=== PATIENT | male | born 1965 | race Two or more races ===

== ENCOUNTER → 2024-10-16 | Outpatient (CLI) | payer MEDICAID, SELFPAY | END | disposition home or self-care (01) | LOC: SWHD 13:33 | PROVIDERS: PCP Physician Assistant; Referring Provider Physician Assistant; Visit Provider Student in an Organized Health Care Education/Training Program | DX: I87.311 Chronic venous hypertension (idiopathic) with ulcer of right lower extremity (principal); L97.512 Non-pressure chronic ulcer of other part of right foot with fat layer exposed; L81.9 Disorder of pigmentation, unspecified; R60.0 Localized edema; I96 Gangrene, not elsewhere classified; L85.3 Xerosis cutis; I10 Essential (primary) hypertension | CPT/HCPCS: 11043; 11046 ×2; A9270 ==

== ENCOUNTER → 2024-10-17 | Outpatient (CLI) | payer MEDICAID, SELFPAY ==
[2024-10-15 14:13] LABS: Blood Urea Nitrogen 20 mg/dL (9-23); Creatinine (Component) 1.2 mg/dL (0.6-1.3); eGFR > 60 See Note
--- NOTE | 2024-10-17 11:00 | XR_ITS ---
Examination: CTA abdominal aorta iliofemoral runoff. 2-D sagittal coronal reconstructions. 3-D reconstructions, vascular October 17, 2024 1140 hours INDICATIONS: Nonhealing ulcer and infection right leg 1 year Technique: Multiple CTA images of the abdominal aorta iliofemoral runoff arterial vessels, 2.0 mm slice thickness, post intravenous administration 130 cc [id number] 2-D sagittal coronal reconstructions. 3-D reconstructions, vascular 3-D postprocessing, including vascular maximum intensity projection images, 3-D volume rendering Low dose protocols were performed. One or more of the following dose reduction techniques were used; automated exposure control, adjustment of the mA and/or KV according to patient size, use of iterative reconstruction technique. Findings: Mild enlargement cardiac contour No visualized liver or splenic lesion No gallstones No pancreatic mass No renal calculi No bowel obstruction No diverticulitis Urinary bladder wall is thickened up to 5 mm Abundant stool in the rectum Fat-containing right inguinal hernia No abdominal aortic aneurysm dilatation Origin of the celiac axis is significantly attenuated Common iliac and external iliac common femoral arteries are intact No superficial femoral artery or popliteal artery significant stenoses Trifurcation arterial vessels on the right side fill to the ankle including dorsalis pedis There is poor filling of the distal left anterior tibial artery, clinical correlation advised IMPRESSION: Urinary bladder wall is thickened up to 5 mm, clinical correlation advised Fat-containing right inguinal hernia Origin of the celiac axis is significantly attenuated Superficial femoral-popliteal arteries intact Trifurcation arterial vessels on the right side fill to the ankle including dorsalis pedis There is poor filling of the distal half left anterior tibial artery.
== END | disposition home or self-care (01) ==
LOC: CCTX 09:55
PROVIDERS: PCP Family Medicine; Referring Provider Surgery Vascular Surgery; Visit Provider Surgery Vascular Surgery
DX: K40.90 Unilateral inguinal hernia, without obstruction or gangrene, not specified as recurrent (principal); I77.89 Other specified disorders of arteries and arterioles
CPT/HCPCS: 36415; 75635; 82565; 84520; A4649; Q9967

== ENCOUNTER → 2024-10-23 | Outpatient (CLI) | payer MEDICAID, SELFPAY | END | disposition home or self-care (01) | PROVIDERS: PCP Physician Assistant; Referring Provider Physician Assistant; Visit Provider Student in an Organized Health Care Education/Training Program | DX: L97.512 Non-pressure chronic ulcer of other part of right foot with fat layer exposed (principal); L81.9 Disorder of pigmentation, unspecified; R60.0 Localized edema; L85.3 Xerosis cutis; I10 Essential (primary) hypertension | CPT/HCPCS: 11042; 11045 ×2; A9270 ==

== ENCOUNTER → 2024-11-04 | Outpatient (CLI) | payer MEDICAID, SELFPAY | END | disposition home or self-care (01) | LOC: SWHD 14:38 | PROVIDERS: PCP Physician Assistant; Referring Provider Physician Assistant; Visit Provider Surgery | DX: I96 Gangrene, not elsewhere classified (principal); I87.311 Chronic venous hypertension (idiopathic) with ulcer of right lower extremity; L97.512 Non-pressure chronic ulcer of other part of right foot with fat layer exposed; L81.9 Disorder of pigmentation, unspecified; R60.0 Localized edema; L85.3 Xerosis cutis; I10 Essential (primary) hypertension | CPT/HCPCS: 11042; A9270 ==

== ENCOUNTER 2024-11-29 10:48 | Emergency (ER) | payer MEDICAID, SELFPAY ==
--- NOTE | 2024-11-29 11:07 | EDNOTE_ITS ---
<Statement entered by Katlyn Montes MD - 12/06/24 12:02> As co-signing physician, I was present and available for consult prn. I concur with the plan and care as documented by the midlevel provider. Upper Extremity Injury RME/HPI General Chief Complaint: Extremity Injury, Upper Stated Complaint: SWELLING TO MIDDLE FINGER ON LEFT HAND Time Seen by Provider: 11/29/24 11:06 Source: patient Arrival date/time: 11/29/24 10:48 59-year-old male with a history of hypertension, type 2 diabetes, hyperlipidemia presents to the emergency room with a chief complaint of swelling and tenderness to the middle finger on his left hand. 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 Mode of arrival: ambulatory Limitations: no limitations Related Data Previous Rx's ?Medication ?Instructions ?Recorded ascorbic acid (vitamin C) 250 mg 500 mg (2 x 250 mg) PO BID #60 tabs 12/26/23 tablet (Vitamin C) multivitamin with folic acid 400 1 tab PO QDAY #30 tabs 12/26/23 mcg tablet (Tab-A-Ita) bisacodyl 10 mg rectal suppository 10 mg NM Q72H PRN Constipation #12 12/29/23 (Dulcolax (bisacodyl)) ea blood-glucose meter (Blood Glucose #1 ea 12/29/23 Monitoring kit) dronabinol 5 mg capsule 5 mg PO BID #30 caps 12/29/23 glucagon HCl 1 mg solution for 1 mg subcut Q20M PRN Hypoglycemia 12/29/23 injection (Glucagon (HCl) #1 ea Emergency Kit) hydrocodone 7.5 mg-acetaminophen 1 tab PO Q8H PRN Pain (Scale Score 12/29/23 325 mg tablet 7-10) #10 tabs insulin lispro 100 unit/mL 1 sliding scale dose subcut 12/29/23 subcutaneous pen (Admelog SolGallo USEASDIRECTD #15 mL U-100 Insulin lispro) metformin 1,000 mg tablet 1,000 mg PO BIDWMEAL #90 tabs 12/29/23 ondansetron HCl 4 mg tablet 4 mg PO Q6H PRN Nausea #30 tabs 12/29/23 pantoprazole 40 mg tablet,delayed 40 mg PO QDAY #60 tabs 12/29/23 release pen needle, diabetic 31 gauge x #1,200 ea 12/29/23 5/16 sitagliptin phosphate 50 mg tablet 50 mg PO QDAY 1 month #30 tabs 12/29/23 (Januvia) insulin glargine 100 unit/mL (3 10 unit (0.1 mL) subcut QPM #15 mL 03/01/24 mL) subcutaneous pen (Basaglar KwikPen U-100 Insulin) midodrine 10 mg tablet 10 mg PO TID PRN hypotension #90 03/04/24 tabs clindamycin HCl 150 mg capsule 450 mg (3 x 150 mg) PO TID 7 days 11/29/24 #63 caps Allergies Allergy/AdvReac Type Severity Reaction Status Date / Time milk AdvReac Mild Diarrhea Verified 12/26/23 09:28 Review of Systems Review of Systems Systems Reviewed: All systems reviewed, normal except as documented Constitutional Constitutional: Reports system reviewed and no additional complaints, except as documented, Denies fatigue, Denies fever(s), Denies headache(s) and Denies weakness Eyes Eyes: Reports system reviewed and no additional complaints, except as documented, Denies blurry vision and Denies change in vision ENT Ears, Nose, Mouth, and Throat: Reports system reviewed and no additional complaints, except as documented, Denies otalgia, Denies headache(s), Denies nasal congestion, Denies throat swelling and Denies vertigo Cardiovascular Cardiovascular: Reports system reviewed and no additional complaints, except as documented, Denies chest pain, Denies dyspnea and Denies dyspnea on exertion Respiratory Respiratory: Reports system reviewed and no additional complaints, except as documented, Denies chest congestion, Denies cough, Denies dyspnea, Denies dyspnea on exertion and Denies wheezing Gastrointestinal Gastrointestinal: Reports system reviewed and no additional complaints, except as documented, Denies abdominal pain, Denies cramping, Denies nausea and Denies vomiting Genitourinary Genitourinary: Reports system reviewed and no additional complaints, except as documented, Denies dysuria and Denies hematuria Musculoskeletal Musculoskeletal: Reports system reviewed and no additional complaints, except as documented, Reports arthralgias and Denies back pain Integumentary/Breasts Skin/Breast: Reports system reviewed and no additional complaints, except as documented, Reports pruritus, Reports skin swelling, Reports unusual bruising and Reports wounds Neurologic Neurologic: Reports system reviewed and no additional complaints, except as documented, Denies confusion, Denies headache(s), Denies lack of coordination, Denies vertigo and Denies weakness Psychiatric Psychiatric: Reports system reviewed and no additional complaints, except as documented, Denies anxiety, Denies confusion, Denies depression, Denies paranoia, Denies suicidal ideation and Denies tactile hallucinations Endocrine Endocrine: Reports system reviewed and no additional complaints, except as documented and Denies fatigue Hematologic/Lymphatic Hematologic/Lymphatic: Reports system reviewed and no additional complaints, except as documented and Denies lymphadenopathy Allergic/Immunologic Allergic/Immunologic: Reports system reviewed and no additional complaints, except as documented, Denies throat swelling, Denies urticaria and Denies wheezing Past Medical History Past Medical History NEUROLOGIC: Negative Neurological Disorders or Seizures CARDIAC: Negative Cardiac Disorders or Congestive Heart Failure RESPIRATORY: Negative Chronic Obstructive Pulmonary Disease (COPD) or Asthma GASTROINTESTINAL: Positive Gastroesophageal Reflux Disease; Negative Gastrointestinal Disorders GENITOURINARY: Negative Genitourinary Disorders or Renal Disease MUSCULOSKELETAL: Negative Musculoskeletal Disorders ENT: Positive Cataracts ENDOCRINE: Positive Endocrine Disorders and Diabetes Mellitus Type 2; Negative Diabetes Mellitus Type 1 HEMATOLOGIC: Negative Blood Disorders or Sickle Cell Disease OTHER HISTORY: Negative Autoimmune Disease, Blood Transfusions, Blood Transfusion Reaction, Anesthesia Reactions or Cancer Family History FAMILY HISTORY: Negative Family Psychiatric Problems, Family Respiratory Disorders, Family Cardiac Disorders, Family Gastrointestinal Problems, Family Cancer, Family Surgery or Family Anesthesia Reaction Social History SMOKING STATUS: Never smoker SECOND HAND EXPOSURE: No SUBSTANCE USE: does not use ED Exam General Limitations: Present no limitations General appearance: Present alert and in no apparent distress Head Head exam: Present atraumatic Eye Eye exam: Present normal appearance, PERRL and EOMI ENT ENT exam: Present normal exam, normal oropharynx and mucous membranes moist Neck Neck exam: Present normal inspection, full ROM and trachea midline Chest Chest inspection: Present normal inspection and symmetric chest wall rise Respiratory Respiratory exam: Present normal lung sounds bilaterally Cardiovascular Cardiovascular exam: Present regular rate, normal rhythm and normal heart sounds Abdominal Exam Abdominal exam: Present soft and normal bowel sounds Extremities Exam Extremities exam: Present normal inspection and full ROM Expanded Upper Extremity Exam Shoulder exam: Present normal inspection Arm exam: Present normal inspection Elbow exam: Present normal inspection Forearm/Wrist exam: Present normal inspection Hand exam: Present full ROM, tenderness, swelling, abrasion and erythema Hand L/R front image: 2 1. abrasion Back Exam Back exam: Present normal inspection and full ROM Neurological Exam Neurological exam: Present alert, oriented X3 and CN II-XII intact Psychiatric Psychiatric exam: Present normal affect and normal mood Skin Skin exam: Present warm, dry, intact and normal color Course Quality Measures none Orders Category Date Time Status XR hand comp LT min 3V Stat Exams 11/29/24 11:08 Completed Clindamycin Vial [Cleocin vial] Med 11/29/24 12:23 Discontinued 600 mg IM X1 ONE Vital Signs Vital signs: Vital Signs Temperature 98.5 F 11/29/24 11:22 Pulse Rate 79 11/29/24 11:22 Respiratory Rate 17 11/29/24 11:22 Blood Pressure 101/67 11/29/24 11:22 Pulse Oximetry (%) 99 11/29/24 11:22 Oxygen Delivery Method Room Air 11/29/24 11:22 Extremity Injury MDM Narrative MDM Narrative:: 59-year-old male with a history of hypertension, type 2 diabetes, hyperlipidemia presents to the emergency room with a chief complaint of swelling and tenderness to the middle finger on his left hand. 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 Clinically the patient appears nontoxic and in no apparent distress. Physical examination shows pain and tenderness to the left middle finger. An x-ray was completed and was negative for any foreign body. Antibiotics were given to the patient and a prescription was sent to his pharmacy. Patient was given strict return precautions and educated that if the injury does not get any better in the next day or 2 to please return to the emergency room immediately. There is swelling and tenderness to the tip of the left finger. The patient has been picking at it with an unknown object to try to remove what he believes is a thorn. I wrote down the information for the hand specialist Margot Rose and gave the patient instructions to please call him as he has a hand specialist out can see him. Patient was given strict education to follow-up with his primary care provider and return to the emergency room for any evidence of worsening signs or symptoms Patient data External records reviewed:: [facility] previous records Clinical information provided by:: patient Social determinants that could affect healthcare access:: none Patient has the following chronic illnesses:: Type 2 diabetes How is presenting disease/condition affected by chronic disease/condition?: e xacerbated by Evaluation data The following diagnostics were reviewed and interpreted by me:: lab results and radiology exam(s) Lab and/or radiology exams considered but not ordered:: Labs and radiology exams considered in order Interpretation Summary: N/A Medications / Prescriptions Medications or Prescriptions considered but not ordered:: Medication given Medication administrations:: Medication Administration History Discontinued Medications Clindamycin Phosphate (Clindamycin Phos Inj 150 Mg/Ml Vial 6 Ml) 600 mg IM X1 ONE Stop: 11/29/24 12:24 Last Admin: 11/29/24 13:14 Dose: 600 mg Documented By: MP Rx given Consultations Consultation(s) initiated? (list below): No Diagnosis Upper Extremity Injury Differential Diagnosis: finger sprain and other (Cellulitis of the finger) Most likely diagnosis given after review of the tests above:: Cellulitis of the finger Admission Indicated Admission indicated?: not indicated Admission Request Was there a request for admission?: No Disposition Plan Disposition Plan: Discharge Discharge Attestation Discharge Attestation: The patient and all family members were given an opportunity to ask questions and understood the discharge instructions. Discharge instructions specifically effects, indications for sooner follow up or return to the emergency department, and the expected course of current diagnosis. Patient condition: Stable Discharge Plan Plan Patient Disposition: HOME (Self Care) Disposition Comment: stable Prescriptions/Referrals Prescriptions/Med Rec: New clindamycin HCl 150 mg capsule 450 mg PO TID 7 Days Qty: 63 0RF No Action ascorbic acid (vitamin C) [Vitamin C] 250 mg Tablet 500 mg PO BID Qty: 60 0RF multivitamin with folic acid [Tab-A-Ita] 400 mcg Tablet 1 tab PO QDAY Qty: 30 0RF pantoprazole 40 mg tablet,delayed release (DR/EC) 40 mg PO QDAY Qty: 60 1RF dronabinol 5 mg Capsule 5 mg PO BID Qty: 30 1RF Rx Instructions: administer before lunch and evening meal/dinner ondansetron HCl 4 mg Tablet 4 mg PO Q6H PRN (Reason: Nausea) Qty: 30 0RF (DME) blood-glucose meter [Blood Glucose Monitoring] Kit See Rx Instructions .Route Qty: 1 0RF Rx Instructions: As directed hydrocodone-acetaminophen 7.5-325 mg Tablet 1 tab PO Q8H MDD 3 tabs each day PRN (Reason: Pain (Scale Score 7-10)) Qty: 10 0RF bisacodyl [Dulcolax (bisacodyl)] 10 mg Suppository 10 mg NM Q72H PRN (Reason: Constipation) Qty: 12 0RF metformin 1,000 mg tablet 1,000 mg PO BIDWMEAL Qty: 90 0RF insulin lispro [Admelog SoloStar U-100 Insulin] 100 unit/mL insulin pen 1 sliding scale dose subcut USEASDIRECTD Qty: 15 2RF Rx Instructions: 131-180 - 1 unit 181-240 - 2 units 241-300 - 3 units 301-350 - 4 units >400 - 8 units (DME) pen needle, diabetic 31 gauge x 5/16 needle See Rx Instructions .Route Qty: 1200 0RF Rx Instructions: As directed Januvia 50 mg tablet 50 mg PO QDAY 30 Days Qty: 30 1RF glucagon HCl [Glucagon (HCl) Emergency Kit] 1 mg Recon Soln 1 mg SUBCUT Q20M PRN (Reason: Hypoglycemia) Qty: 1 2RF Rx Instructions: until target blood sugar attained insulin glargine [Basaglar KwikPen U-100 Insulin] 100 unit/mL (3 mL) insulin pen 10 unit subcut QPM Qty: 15 0RF midodrine 10 mg tablet 10 mg PO TID PRN (Reason: hypotension) Qty: 90 0RF Rx Instructions: do not give last dose after 6PM or within 4 hrs of bedtime. Hold for SBP >120 Referrals: MARGOT ROSE [Referring Provider] - In 1 week Problem List Clinical Impression: Cellulitis of finger of left hand Patient/Caregiver Discharge Instructions Education Materials: Discharge Instructions for Cellulitis, ED Cellulitis Additional Instructions: Sandor un seguimiento con donaldson proveedor de atenci?n primaria en las pr?ximas 24 a 48 horas. Los antibi?ticos se env?an a donaldson farmacia por favor rec?jalos y t?melos tristan se indica. Anot? el n?lisa de un especialista en durga. Donaldson nombre es Margot Rose, de [place]. Ll?melos y comun?quese con donalsdon oficina, ya que ?l deber? examinar cualquier lesi?n en la mano. Print Language: Malay Stand Alone Forms: Aruna Award Info., Patient Portal Info Letter PA/[employer] Supervising Physician PA/[employer] Supervising Physician: Dr. MONTES
--- NOTE | 2024-11-29 11:08 | XR_ITS ---
Examination: Hand, left 3 views Technique: Hand AP, oblique, lateral 3 views Date and time of exam: November 29, 2024 1116 hours INDICATIONS: Puncture injury with sore into the third digit one week ago, pain FINDINGS: Soft tissue swelling about the third digit No opaque foreign body Air density in the soft tissue palmar to the distal phalanx third digit No arron cortical bone destruction IMPRESSION: No opaque foreign body No arron cortical bone destruction
[2024-11-29 11:22] VITALS: BP 101/67; PULSE 79; RESP 17; TEMP 36.9; O2SAT 99; BMI 22.0
[2024-11-29] MEDS: CLINDAMYCIN PHOS INJ 150 MG/ML VIAL 6 ML 600 MG IM (13:14)
== END 2024-11-29 14:25 | disposition home or self-care (01) ==
LOC: SERX 12:40
PROVIDERS: Emergency Provider Emergency Medicine; PCP Family Medicine
DX: L03.012 Cellulitis of left finger (principal); E11.9 Type 2 diabetes mellitus without complications; I10 Essential (primary) hypertension; E78.5 Hyperlipidemia, unspecified
CPT/HCPCS: 73130; 96372; 99283; J0736

== ENCOUNTER → 2024-11-29 | Outpatient (CLI) | payer MEDICAID, SELFPAY | END | disposition home or self-care (01) | LOC: SWHD 09:20 | PROVIDERS: PCP Physician Assistant; Referring Provider Physician Assistant; Visit Provider Student in an Organized Health Care Education/Training Program | DX: I87.311 Chronic venous hypertension (idiopathic) with ulcer of right lower extremity (principal); L97.512 Non-pressure chronic ulcer of other part of right foot with fat layer exposed; L81.9 Disorder of pigmentation, unspecified; R60.0 Localized edema; L85.3 Xerosis cutis; I10 Essential (primary) hypertension | CPT/HCPCS: 11042; 11045 ×2 ==

== ENCOUNTER 2024-12-02 10:05 | Emergency (ER) | payer MEDICAID, SELFPAY ==
[2024-12-02 10:27] VITALS: BP 100/67; PULSE 79; RESP 19; TEMP 36.8; O2SAT 96; BMI 21.7
--- NOTE | 2024-12-02 10:37 | XR_ITS ---
Examination: Hand, right 3 views Technique: Hand AP, oblique, lateral 3 views Date and time of exam: September 01, 2025 1050 hours INDICATIONS: Right hand swelling and tenderness 10 days FINDINGS: Old fracture deformity first metacarpal Soft tissue swelling and air density surrounding the third digit No opaque foreign body No arron cortical bone destruction IMPRESSION: Prominent soft tissue swelling about the third digit No arron cortical bone destruction
--- NOTE | 2024-12-02 10:37 | EDRME_ITS ---
Rapid Medical Screening Exam [facility] Arrival date/time: 12/02/24 10:05 59-year-old male with a history of type 2 diabetes presents to the emergency room with a chief complaint of swelling and tenderness to his left middle finger. 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 The patient was seen here on Monday and was told to return to the emergency room if the swelling and pain got worse. I have greeted and performed a focused initial assessment of this patient. A comprehensive ED assessment and evaluation of the patient, analysis of all test results, and completion of the medical decision making process will be conducted by additional ED providers. Chief Complaint: Hand/Wrist Problems Vital signs: Vital Signs Temperature 98.2 F 12/02/24 10:27 Pulse Rate 79 12/02/24 10:27 Respiratory Rate 19 12/02/24 10:27 Blood Pressure 100/67 12/02/24 10:27 Pulse Oximetry (%) 96 12/02/24 10:27 Oxygen Delivery Method Room Air 12/02/24 10:27 Vital signs reviewed by provider: Yes
[2024-12-02 11:06] LABS: Basophils % (Auto) 0 % (0-2.5); Eosinophils # (Auto) 0.1 Thou/mm3 (0.0-0.5); Eosinophils % (Auto) 1 % (0-10); Hematocrit 38.4 % (41.0-53.0); Hemoglobin 12.7 g/dL (13.5-16.0); Immature Granulocytes % (Auto) 0 % (0-0); Immature Granulocytes Auto 0.03 Thou/mm3 (0.00-0.00); Lymphocytes # (Auto) 1.7 Thou/mm3 (1.0-4.8); Lymphocytes % (Auto) 17 % (10-50); Mean Corpuscular HGB Conc 33.1 g/dl (31.0-37.0); Mean Corpuscular Hemoglobin 27.3 pg (25.0-35.0); Mean Corpuscular Volume 83 fL (80-100); Monocytes # (Auto) 0.6 Thou/mm3 (0.0-0.8); Monocytes % (Auto) 6 % (0-12); Neutrophils # (Auto) 7.7 Thou/mm3 (1.8-7.7); Neutrophils % (Auto) 76 % (37-80); Nucleated Red Blood Cell % 0 /100 WBC (0); Platelet Count 331 Thou/mm3 (140-440); RDW Standard Deviation 42.1 fL (35.1-43.9); Red Blood Count 4.65 Miln/mm3 (4.50-5.90); White Blood Count 10.1 Thou/mm3 (3.8-10.6)
[2024-12-02 11:41] LABS: Alanine Aminotransferase 9 U/L (10-49); Albumin, Serum 4.1 gm/dL (3.5-5.0); Albumin/Globulin Ratio 1.2 (1.2-2.2); Alkaline Phosphatase 122 U/L (46-116); Anion Gap 8 (7-16); Aspartate Amino Transferase 21 U/L (0-34); BUN/Creatinine Ratio 20 Ratio (12-20); Bilirubin,Total 0.3 mg/dL (0.3-1.2); Blood Urea Nitrogen 22 mg/dL (9-23); Calcium 9.2 mg/dL (8.3-10.6); Calcium (Corrected) 9.2 mg/dL (8.5-10.1); Carbon Dioxide 26.9 mMol/L (20.0-31.0); Chloride 99 mMol/L (98-107); Creatinine (Component) 1.1 mg/dL (0.6-1.3); Estimated Creatinine Clearance 58.2 mL/min (>60); Globulin 3.4 gm/dL (2.3-3.5); Osmolality,Calculated 288 (275-295); Sodium 134 mMol/L (136-145); Total Protein 7.5 gm/dL (5.7-8.2); eGFR > 60 See Note
[2024-12-02 11:42] LABS: Glucose 409 mg/dL (74-106)
[2024-12-02 15:47] VITALS: BP 132/80; PULSE 84; RESP 18; TEMP 36.7; O2SAT 98
--- NOTE | 2024-12-02 16:03 | PD.EDADULT ---
ED General RME/HPI General Chief complaint: Hand/Wrist Problems Stated complaint: RECHECK - FINGER PAIN/SWELLING Time Seen by Provider: 12/02/24 15:52 Arrival date/time: 12/02/24 10:05 CC: Pain enlargement swelling redness and tenderness of the left middle finger HPI ongoing for the past 8 days after trying to pick of the lemon from his tree and was stuck by one of the spines. Seen in the clinic told him that was not anything he had been worried about patient states however is gotten progressively worse patient admits that he is a diabetic does not take his medications. No other complaints localized pain is 3-5 out of 10 scale RME / HPI RME / HPI narrative: 12/02/24 10:05 59-year-old male with a history of type 2 diabetes presents to the emergency room with a chief complaint of swelling and tenderness to his left middle finger. 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 The patient was seen here on Monday and was told to return to the emergency room if the swelling and pain got worse. I have greeted and performed a focused initial assessment of this patient. A comprehensive ED assessment and evaluation of the patient, analysis of all test results, and completion of the medical decision making process will be conducted by additional ED providers. Related Data Previous Rx's ?Medication ?Instructions ?Recorded ascorbic acid (vitamin C) 250 mg 500 mg (2 x 250 mg) PO BID #60 tabs 12/26/23 tablet (Vitamin C) multivitamin with folic acid 400 1 tab PO QDAY #30 tabs 12/26/23 mcg tablet (Tab-A-Ita) bisacodyl 10 mg rectal suppository 10 mg [place] Q72H PRN Constipation #12 12/29/23 (Dulcolax (bisacodyl)) ea blood-glucose meter (Blood Glucose #1 ea 12/29/23 Monitoring kit) dronabinol 5 mg capsule 5 mg PO BID #30 caps 12/29/23 glucagon HCl 1 mg solution for 1 mg subcut Q20M PRN Hypoglycemia 12/29/23 injection (Glucagon (HCl) #1 ea Emergency Kit) hydrocodone 7.5 mg-acetaminophen 1 tab PO Q8H PRN Pain (Scale Score 12/29/23 325 mg tablet 7-10) #10 tabs insulin lispro 100 unit/mL 1 sliding scale dose subcut 12/29/23 subcutaneous pen (Admelog SoloStar USEASDIRECTD #15 mL U-100 Insulin lispro) metformin 1,000 mg tablet 1,000 mg PO BIDWMEAL #90 tabs 12/29/23 ondansetron HCl 4 mg tablet 4 mg PO Q6H PRN Nausea #30 tabs 12/29/23 pantoprazole 40 mg tablet,delayed 40 mg PO QDAY #60 tabs 12/29/23 release pen needle, diabetic 31 gauge x #1,200 ea 12/29/2304/11 sitagliptin phosphate 50 mg tablet 50 mg PO QDAY 1 month #30 tabs 12/29/23 (Januvia) insulin glargine 100 unit/mL (3 10 unit (0.1 mL) subcut QPM #15 mL 03/01/24 mL) subcutaneous pen (Basaglar KwikPen U-100 Insulin) midodrine 10 mg tablet 10 mg PO TID PRN hypotension #90 03/04/24 tabs clindamycin HCl 150 mg capsule 450 mg (3 x 150 mg) PO TID 7 days 11/29/24 #63 caps Allergies Allergy/AdvReac Type Severity Reaction Status Date / Time milk AdvReac Mild Diarrhea Verified 12/26/23 09:28 Review of Systems Review of Systems Narrative Review of Systems: GEN: No fever, no chills, no weight loss EYES: No discharge, no visual changes, no pain HEENT: No ear pain, no congestion, no sore throat PULM: No shortness of breath, no cough, no congestion CV: No chest pain, no dyspnea on exertion, no palpitations GI: No nausea, no vomiting, no diarrhea, no pain, no constipation : No frequency, no urgency, no dysuria MUSC/SKEL: No joint pain, no back pain,+ finger pain SKIN: No rash PSYCH: No hallucinations, no depression HEME/LYMPH: No easy bleeding or bruising tendencies NEURO: No weakness, no headache Past Medical History Past Medical History NEUROLOGIC: Negative Neurological Disorders or Seizures CARDIAC: Negative Cardiac Disorders or Congestive Heart Failure RESPIRATORY: Negative Chronic Obstructive Pulmonary Disease (COPD) or Asthma GASTROINTESTINAL: Positive Gastroesophageal Reflux Disease; Negative Gastrointestinal Disorders GENITOURINARY: Negative Genitourinary Disorders or Renal Disease MUSCULOSKELETAL: Negative Musculoskeletal Disorders ENT: Positive Cataracts ENDOCRINE: Positive Endocrine Disorders and Diabetes Mellitus Type 2; Negative Diabetes Mellitus Type 1 HEMATOLOGIC: Negative Blood Disorders or Sickle Cell Disease OTHER HISTORY: Negative Autoimmune Disease, Blood Transfusions, Blood Transfusion Reaction, Anesthesia Reactions or Cancer Family History FAMILY HISTORY: Negative Family Psychiatric Problems, Family Respiratory Disorders, Family Cardiac Disorders, Family Gastrointestinal Problems, Family Cancer, Family Surgery or Family Anesthesia Reaction Social History SMOKING STATUS: Never smoker SECOND HAND EXPOSURE: No SUBSTANCE USE: does not use ED Exam Narrative Physical exam: [General: Not in any acute distress Head normocephalic HEENT: Within acceptable limits Neck is supple nontender Chest equal chest rise nontender to palpation Respiratory: Clear to auscultation no wheezes crackles or rubs CV: Rate rhythm is regular no murmurs rubs or clicks Abdomen is distended secondary to body habitus soft nontender no masses positive bowel sounds all 4 quadrants Back: No CVA tenderness no spinous process tenderness from cervical spine thoracic and lumbar spine Skin: Enlarged swollen erythematous edematous left third digit, there is exudative material underlying the skin. All on the palmar aspect of the finger no nail involvement. Otherwise skin is intact no petechiae rash induration ulceration or crepitus Extremities: Moving all extremity against resistance cap refill less than 2 seconds neurosensory intact Neuro: Awake alert oriented x3 Glascow coma 15 no focal deficits] Course Quality Measures none Orders Category Date Time Status Saline [Insert IV] NOW Care 12/02/24 15:59 Active Set Up Suture Tray STAT Care 12/02/24 15:59 Active XR hand comp LT min 3V Stat Exams 12/02/24 10:37 Completed CBC Stat Lab 12/02/24 10:58 Completed CMP [Comprehensive Metabolic Panel] Stat Lab 12/02/24 10:58 Completed Insulin Regular Med 12/02/24 15:59 Discontinued 5 unit SC X1 ONE Lidocaine 1% 20 ml [Xylocaine 1% 20 ML] Med 12/02/24 15:59 Discontinued 20 ml INFL X1 ONE Piper/Tazo Inj [Zosyn Inj] 3.375 gm Med 12/02/24 15:59 Discontinued Sodium Chloride 0.9% (P) [Ns 0.9% (P)] 50 ml IV X1 Vital Signs Vital signs: Vital Signs Temperature 98.2 F 12/02/24 10:27 Pulse Rate 79 12/02/24 10:27 Respiratory Rate 19 12/02/24 10:27 Blood Pressure 100/67 12/02/24 10:27 Pulse Oximetry (%) 96 12/02/24 10:27 Oxygen Delivery Method Room Air 12/02/24 10:27 Procedures -ED Procedure Comment Anesthesia: 1% lidocaine digital block 10 mL injected 5 mL in each side of the base of the finger. I&D of the third left finger #11 scalpel 2 cm full-thickness laceration with immediate release of a moderate amount of exudative material site was then cleaned loculations were broken up. A bulky dressing was applied. The patient continued to ooze blood and exudate from the site. Patient tolerated the procedure well. MDM Patient data External records reviewed:: [facility] previous records Clinical information provided by:: patient Social determinants that could affect healthcare access:: none Patient has the following chronic illnesses:: Diabetes How is presenting disease/condition affected by chronic disease/condition?: exacerbated by Evaluation data The following diagnostics were reviewed and interpreted by me:: lab results and radiology exam(s) Lab and/or radiology exams considered but not ordered:: CBC shows no acute leukocytosis anemia thrombocytopenia CMP shows significantly elevated blood glucose greater than 400 no other electrolyte imbalances renal impairment transaminitis or T. bili elevation Interpretation Summary: Finger abscess I&D. Medications Medications considered but not ordered:: None Medication administrations:: Medication Administration History Discontinued Medications Piperacillin Sod/Tazobactam (Sod 3.375 gm/ Sodium Chloride) 50 mls @ 100 mls/hr IV X1 ONE Stop: 12/02/24 16:28 Insulin Human Regular (Insulin Hum Regular 1 Unit/0.01 Ml (Per Unit)) 5 unit SC X1 ONE Stop: 12/02/24 16:00 Lidocaine HCl (Lidocaine Hcl 1% 20 Ml Vial) 20 ml INFL X1 ONE Stop: 12/02/24 16:00 None Consultations Consultation(s) initiated? (list below): No Diagnosis Differential Diagnosis ED Complaint MDM: Finger abscess, finger cellulitis, osteomyelitis Most likely diagnosis given after review of the tests above:: Finger abscess Admission Indicated Admission indicated?: not indicated Explain why admission is indicated or not indicated:: Stable for outpatient follow-up Admission Request Was there a request for admission?: No Disposition Plan Disposition Plan: Discharge Discharge Attestation Discharge Attestation: The patient and all family members were given an opportunity to ask questions and understood the discharge instructions. Discharge instructions specifically effects, indications for sooner follow up or return to the emergency department, and the expected course of current diagnosis. Patient condition: Stable Medical Decision Making Differential Diagnosis Differential Diagnosis: Finger abscess, finger cellulitis, osteomyelitis Lab Data 12/02/24 10:58 12/02/24 10:58 Labs: Lab Results 12/02/24 Range/Units 10:58 WBC 10.1 (3.8-10.6) Thou/mm3 RBC 4.65 (4.50-5.90) Miln/mm3 Hgb 12.7 L (13.5-16.0) g/dL Hct 38.4 L (41.0-53.0) % MCV 83 (80-100) fL MCH 27.3 (25.0-35.0) pg MCHC 33.1 (31.0-37.0) g/dl RDW Std Deviation 42.1 (35.1-43.9) fL Plt Count 331 (140-440) Thou/mm3 Neut % (Auto) 76 (37-80) % Lymph % (Auto) 17 (10-50) % [place] % (Auto) 6 (0-12) % Eos % (Auto) 1 (0-10) % Baso % (Auto) 0 (0-2.5) % Neut # (Auto) 7.7 (1.8-7.7) Thou/mm3 Lymph # (Auto) 1.7 (1.0-4.8) Thou/mm3 [place] # (Auto) 0.6 (0.0-0.8) Thou/mm3 Eos # (Auto) 0.1 (0.0-0.5) Thou/mm3 Baso # (Auto) 0.0 (0.0-0.2) Thou/mm3 Immature Gran # (Auto) 0.03 H (0.00-0.00) Thou/mm3 Absolute Nucleated RBC 0.00 (0.00-0.00) Thou/mm3 Immature Gran % 0 (0-0) % Nucleated RBC % 0 (0) /100 WBC Sodium 134 L (136-145) mMol/L Potassium 4.0 (3.4-5.1) mMol/L Chloride 99 (98-107) mMol/L Carbon Dioxide 26.9 (20.0-31.0) mMol/L Anion Gap 8 (7-16) BUN 22 (9-23) mg/dL Creatinine 1.1 (0.6-1.3) mg/dL Estim Creat Clear Calc 58.2 L (>60) mL/min eGFR > 60 (60 - ) See Note BUN/Creatinine Ratio 20 (12-20) Ratio Glucose 409 H* (74-106) mg/dL Calculated Osmolality 288 (275-295) Calcium 9.2 (8.3-10.6) mg/dL Corrected Calcium 9.2 (8.5-10.1) mg/dL Total Bilirubin 0.3 (0.3-1.2) mg/dL AST 21 (0-34) U/L ALT 9 L (10-49) U/L Alkaline Phosphatase 122 H (46-116) U/L Total Protein 7.5 (5.7-8.2) gm/dL Albumin 4.1 (3.5-5.0) gm/dL Globulin 3.4 (2.3-3.5) gm/dL Albumin/Globulin Ratio 1.2 (1.2-2.2) Discharge Plan Plan Patient Disposition: HOME (Self Care) Patient condition on transfer: Stable Prescriptions/Referrals Prescriptions/Med Rec: No Action ascorbic acid (vitamin C) [Vitamin C] 250 mg Tablet 500 mg PO BID Qty: 60 0RF multivitamin with folic acid [Tab-A-Ita] 400 mcg Tablet 1 tab PO QDAY Qty: 30 0RF pantoprazole 40 mg tablet,delayed release (DR/EC) 40 mg PO QDAY Qty: 60 1RF dronabinol 5 mg Capsule 5 mg PO BID Qty: 30 1RF Rx Instructions: administer before lunch and evening meal/dinner ondansetron HCl 4 mg Tablet 4 mg PO Q6H PRN (Reason: Nausea) Qty: 30 0RF (DME) blood-glucose meter [Blood Glucose Monitoring] Kit See Rx Instructions .Route Qty: 1 0RF Rx Instructions: As directed hydrocodone-acetaminophen 7.5-325 mg Tablet 1 tab PO Q8H MDD 3 tabs each day PRN (Reason: Pain (Scale Score 7-10)) Qty: 10 0RF bisacodyl [Dulcolax (bisacodyl)] 10 mg Suppository 10 mg AK Q72H PRN (Reason: Constipation) Qty: 12 0RF metformin 1,000 mg tablet 1,000 mg PO BIDWMEAL Qty: 90 0RF insulin lispro [Admelog SoloStar U-100 Insulin] 100 unit/mL insulin pen 1 sliding scale dose subcut USEASDIRECTD Qty: 15 2RF Rx Instructions: 131-180 - 1 unit 181-240 - 2 units 241-300 - 3 units 301-350 - 4 units >400 - 8 units (DME) pen needle, diabetic 31 gauge x 5/16 needle See Rx Instructions .Route Qty: 1200 0RF Rx Instructions: As directed Januvia 50 mg tablet 50 mg PO QDAY 30 Days Qty: 30 1RF glucagon HCl [Glucagon (HCl) Emergency Kit] 1 mg Recon Soln 1 mg SUBCUT Q20M PRN (Reason: Hypoglycemia) Qty: 1 2RF Rx Instructions: until target blood sugar attained clindamycin HCl 150 mg capsule 450 mg PO TID 7 Days Qty: 63 0RF insulin glargine [Basaglar KwikPen U-100 Insulin] 100 unit/mL (3 mL) insulin pen 10 unit subcut QPM Qty: 15 0RF midodrine 10 mg tablet 10 mg PO TID PRN (Reason: hypotension) Qty: 90 0RF Rx Instructions: do not give last dose after 6PM or within 4 hrs of bedtime. Hold for SBP >120 Referrals: Christophe Plascencia MD [Primary Care Provider] - In 1 week Problem List Clinical Impression: Cellulitis and abscess of unspecified digit Patient/Caregiver Discharge Instructions Other Activity Instructions:: Take the medications as prescribed return in 2 days for reevaluation if there is a worsening of symptoms do not wait return immediately. Print Language: Guatemalan Stand Alone Forms: Aruna Award Info., Work/School Release, Patient Portal Info Letter PA/CARLENE Supervising Physician KIMBERLY/CARLENE Supervising Physician: Ramiro Mao ENP
[2024-12-02 16:34] VITALS: BP 158/97; PULSE 85; RESP 16; TEMP 36.7; O2SAT 100
[2024-12-02] MEDS: LIDOCAINE HCL 1% 20 ML VIAL INFL (16:53)
[2024-12-02] MEDS: PIPER/TAZO INJ 3.375 GM in SODIUM CHLORIDE 0.9% (P) 50 ML IV (16:53)
--- NOTE | 2024-12-02 17:17 | PC.NURSE ---
PT'S LEFT 3RD DIGIT DRESSED WITH BULKY DRESSING, PER Phan NUN[employer]Z [employer].
[2024-12-02 17:25] VITALS: BP 160/96; PULSE 76; RESP 17; TEMP 36.7; O2SAT 99
== END 2024-12-02 17:32 | disposition home or self-care (01) ==
PROVIDERS: Nurse Practitioner Family; Emergency Provider Emergency Medicine; PCP Family Medicine
DX: L02.512 Cutaneous abscess of left hand (principal); L03.012 Cellulitis of left finger
CPT/HCPCS: 26010; 36415; 73130; 80053; 85025; 96365; 99284; J2543; J3490; J7050

== ENCOUNTER 2024-12-04 13:39 | Emergency (ER) | payer MEDICAID, SELFPAY ==
[2024-12-04 13:45] VITALS: BP 95/60; PULSE 80; RESP 16; TEMP 37.1; O2SAT 98
--- NOTE | 2024-12-04 15:40 | EDNOTE_ITS ---
ED General RME/HPI General Chief complaint: Wound Recheck / Suture Removal Stated complaint: RECHECK OF LEFT FINGER INJURY Time Seen by Provider: 12/04/24 14:02 Arrival date/time: 12/04/24 13:39 CC: Middle finger wound recheck HPI patient was seen here 2 days ago, had I&D and a large abscess in the finger secondary to a puncture wound from a lemon tree thorn. Patient states it is continually improving, there is been no new pus redness or increased pain in the finger. Patient denies fever or chills. Patient states his blood sugars have decreased to 171 today. Related Data Previous Rx's ?Medication ?Instructions ?Recorded ascorbic acid (vitamin C) 250 mg 500 mg (2 x 250 mg) PO BID #60 tabs 12/26/23 tablet (Vitamin C) multivitamin with folic acid 400 1 tab PO QDAY #30 tabs 12/26/23 mcg tablet (Tab-A-Ita) bisacodyl 10 mg rectal suppository 10 mg [place] Q72H PRN Constipation #12 12/29/23 (Dulcolax (bisacodyl)) ea blood-glucose meter (Blood Glucose #1 ea 12/29/23 Monitoring kit) dronabinol 5 mg capsule 5 mg PO BID #30 caps 12/29/23 glucagon HCl 1 mg solution for 1 mg subcut Q20M PRN Hypoglycemia 12/29/23 injection (Glucagon (HCl) #1 ea Emergency Kit) hydrocodone 7.5 mg-acetaminophen 1 tab PO Q8H PRN Pain (Scale Score 12/29/23 325 mg tablet 7-10) #10 tabs insulin lispro 100 unit/mL 1 sliding scale dose subcut 12/29/23 subcutaneous pen (Admelog SoloStar USEASDIRECTD #15 mL U-100 Insulin lispro) metformin 1,000 mg tablet 1,000 mg PO BIDWMEAL #90 tabs 12/29/23 ondansetron HCl 4 mg tablet 4 mg PO Q6H PRN Nausea #30 tabs 12/29/23 pantoprazole 40 mg tablet,delayed 40 mg PO QDAY #60 tabs 12/29/23 release pen needle, diabetic 31 gauge x #1,200 ea 12/29/23/16 sitagliptin phosphate 50 mg tablet 50 mg PO QDAY 1 month #30 tabs 12/29/23 (Januvia) insulin glargine 100 unit/mL (3 10 unit (0.1 mL) subcut QPM #15 mL 03/01/24 mL) subcutaneous pen (Basaglar KwikPen U-100 Insulin) midodrine 10 mg tablet 10 mg PO TID PRN hypotension #90 03/04/24 tabs clindamycin HCl 150 mg capsule 450 mg (3 x 150 mg) PO TID 7 days 11/29/24 #63 caps Allergies Allergy/AdvReac Type Severity Reaction Status Date / Time milk AdvReac Mild Diarrhea Verified 12/26/23 09:28 Review of Systems Review of Systems Narrative Review of Systems: GEN: No fever, no chills, no weight loss EYES: No discharge, no visual changes, no pain HEENT: No ear pain, no congestion, no sore throat PULM: No shortness of breath, no cough, no congestion CV: No chest pain, no dyspnea on exertion, no palpitations GI: No nausea, no vomiting, no diarrhea, no pain, no constipation : No frequency, no urgency, no dysuria MUSC/SKEL: No joint pain, no back pain,+ finger pain SKIN: No rash PSYCH: No hallucinations, no depression HEME/LYMPH: No easy bleeding or bruising tendencies NEURO: No weakness, no headache Past Medical History Past Medical History NEUROLOGIC: Negative Neurological Disorders or Seizures CARDIAC: Negative Cardiac Disorders or Congestive Heart Failure RESPIRATORY: Negative Chronic Obstructive Pulmonary Disease (COPD) or Asthma GASTROINTESTINAL: Positive Gastroesophageal Reflux Disease; Negative Gastrointestinal Disorders GENITOURINARY: Negative Genitourinary Disorders or Renal Disease MUSCULOSKELETAL: Negative Musculoskeletal Disorders ENT: Positive Cataracts ENDOCRINE: Positive Endocrine Disorders and Diabetes Mellitus Type 2; Negative Diabetes Mellitus Type 1 HEMATOLOGIC: Negative Blood Disorders or Sickle Cell Disease OTHER HISTORY: Negative Autoimmune Disease, Blood Transfusions, Blood Transfusion Reaction, Anesthesia Reactions or Cancer Family History FAMILY HISTORY: Negative Family Psychiatric Problems, Family Respiratory Disorders, Family Cardiac Disorders, Family Gastrointestinal Problems, Family Cancer, Family Surgery or Family Anesthesia Reaction Social History SMOKING STATUS: Never smoker SECOND HAND EXPOSURE: No SUBSTANCE USE: does not use ED Exam Narrative Physical exam: [General: Not in any acute distress Head normocephalic HEENT: Within acceptable limits Neck is supple nontender Chest equal chest rise nontender to palpation Respiratory: Clear to auscultation no wheezes crackles or rubs CV: Rate rhythm is regular no murmurs rubs or clicks Abdomen is distended secondary to body habitus soft nontender no masses positive bowel sounds all 4 quadrants Back: No CVA tenderness no spinous process tenderness from cervical spine thoracic and lumbar spine Skin: Left hand third digit: The patient's finger, has decreased edema, no erythema not warm to touch no streaking into the dorsum of the hand. The incision site is still open oozing exudative bloody secretions. Overall the finger appears slightly improved. Otherwise skin is intact no petechiae rash induration ulceration or crepitus Extremities: Moving all extremity against resistance cap refill less than 2 seconds neurosensory intact Neuro: Awake alert oriented x3 Glascow coma 15 no focal deficits] Course Quality Measures none Vital Signs Vital signs: Vital Signs Temperature 98.8 F 12/04/24 13:45 Pulse Rate 80 12/04/24 13:45 Respiratory Rate 16 12/04/24 13:45 Blood Pressure 95/60 12/04/24 13:45 Pulse Oximetry (%) 98 12/04/24 13:45 Oxygen Delivery Method Room Air 12/04/24 13:45 [facility] Patient data External records reviewed:: [facility] previous records Clinical information provided by:: patient Social determinants that could affect healthcare access:: none Patient has the following chronic illnesses:: Diabetes How is presenting disease/condition affected by chronic disease/condition?: exacerbated by Evaluation data The following diagnostics were reviewed and interpreted by me:: other (specify) (None) Lab and/or radiology exams considered but not ordered:: None Interpretation Summary: Improving finger abscess Medications Medications considered but not ordered:: None Medication administrations:: None Consultations Consultation(s) initiated? (list below): No Diagnosis Differential Diagnosis ED Complaint MDM: Finger abscess finger cellulitis osteomyelitis Most likely diagnosis given after review of the tests above:: Finger abscess with I&D Admission Indicated Admission indicated?: not indicated Explain why admission is indicated or not indicated:: Stable for outpatient follow-up Admission Request Was there a request for admission?: No Disposition Plan Disposition Plan: Discharge Discharge Attestation Discharge Attestation: The patient and all family members were given an opportunity to ask questions and understood the discharge instructions. Discharge instructions specifically effects, indications for sooner follow up or return to the emergency department, and the expected course of current diagnosis. Patient condition: Stable Medical Decision Making Differential Diagnosis Differential Diagnosis: Finger abscess finger cellulitis osteomyelitis Discharge Plan Plan Patient Disposition: HOME (Self Care) Patient condition on transfer: Stable Prescriptions/Referrals Prescriptions/Med Rec: No Action ascorbic acid (vitamin C) [Vitamin C] 250 mg Tablet 500 mg PO BID Qty: 60 0RF multivitamin with folic acid [Tab-A-Ita] 400 mcg Tablet 1 tab PO QDAY Qty: 30 0RF pantoprazole 40 mg tablet,delayed release (DR/EC) 40 mg PO QDAY Qty: 60 1RF dronabinol 5 mg Capsule 5 mg PO BID Qty: 30 1RF Rx Instructions: administer before lunch and evening meal/dinner ondansetron HCl 4 mg Tablet 4 mg PO Q6H PRN (Reason: Nausea) Qty: 30 0RF (DME) blood-glucose meter [Blood Glucose Monitoring] Kit See Rx Instructions .Route Qty: 1 0RF Rx Instructions: As directed hydrocodone-acetaminophen 7.5-325 mg Tablet 1 tab PO Q8H MDD 3 tabs each day PRN (Reason: Pain (Scale Score 7-10)) Qty: 10 0RF bisacodyl [Dulcolax (bisacodyl)] 10 mg Suppository 10 mg [place] Q72H PRN (Reason: Constipation) Qty: 12 0RF metformin 1,000 mg tablet 1,000 mg PO BIDWMEAL Qty: 90 0RF insulin lispro [Admelog SoloStar U-100 Insulin] 100 unit/mL insulin pen 1 sliding scale dose subcut USEASDIRECTD Qty: 15 2RF Rx Instructions: 131-180 - 1 unit 181-240 - 2 units 241-300 - 3 units 301-350 - 4 units >400 - 8 units (DME) pen needle, diabetic 31 gauge x 5/16 needle See Rx Instructions .Route Qty: 1200 0RF Rx Instructions: As directed Januvia 50 mg tablet 50 mg PO QDAY 30 Days Qty: 30 1RF glucagon HCl [Glucagon (HCl) Emergency Kit] 1 mg Recon Soln 1 mg SUBCUT Q20M PRN (Reason: Hypoglycemia) Qty: 1 2RF Rx Instructions: until target blood sugar attained clindamycin HCl 150 mg capsule 450 mg PO TID 7 Days Qty: 63 0RF insulin glargine [Basaglar KwikPen U-100 Insulin] 100 unit/mL (3 mL) insulin pen 10 unit subcut QPM Qty: 15 0RF midodrine 10 mg tablet 10 mg PO TID PRN (Reason: hypotension) Qty: 90 0RF Rx Instructions: do not give last dose after 6PM or within 4 hrs of bedtime. Hold for SBP >120 Referrals: Christophe Plascencia MD [Primary Care Provider] - In 1 week Problem List Clinical Impression: Wound check, abscess Patient/Caregiver Discharge Instructions Education Materials: ED Wound Check (Infection) Additional Instructions: Continue on the antibiotics, change the dressing once a day, if there is a worsening of symptoms including redness or streaks return the emergency room for reevaluation otherwise follow-up your primary care doctor. Print Language: Polish Stand Alone Forms: Aruna Award Info., Work/School Release, Patient Portal Info Letter PA/[employer] Supervising Physician PA/[employer] Supervising Physician: Ramiro Mao ENP
== END 2024-12-04 15:43 | disposition home or self-care (01) ==
PROVIDERS: Emergency Provider Emergency Medicine; PCP Family Medicine
DX: S69.92XD Unspecified injury of left wrist, hand and finger(s), subsequent encounter (principal); L02.512 Cutaneous abscess of left hand; W60.XXXD Contact with nonvenomous plant thorns and spines and sharp leaves, subsequent encounter
CPT/HCPCS: 99281

== ENCOUNTER → 2024-12-06 | Outpatient (CLI) | payer MEDICAID, SELFPAY | END | disposition home or self-care (01) | LOC: SWHD 14:14 | PROVIDERS: PCP Family Medicine; Referring Provider Family Medicine; Visit Provider Surgery | DX: I87.311 Chronic venous hypertension (idiopathic) with ulcer of right lower extremity (principal); L97.512 Non-pressure chronic ulcer of other part of right foot with fat layer exposed; L81.9 Disorder of pigmentation, unspecified; R60.0 Localized edema; L85.3 Xerosis cutis; I10 Essential (primary) hypertension | CPT/HCPCS: 11042; 11045; A9270 ==

== ENCOUNTER → 2024-12-11 | Outpatient (CLI) | payer MEDICAID, SELFPAY | END | disposition home or self-care (01) | LOC: SWHD 13:51 | PROVIDERS: PCP Physician Assistant; Referring Provider Physician Assistant; Visit Provider Student in an Organized Health Care Education/Training Program | DX: I87.311 Chronic venous hypertension (idiopathic) with ulcer of right lower extremity (principal); L97.512 Non-pressure chronic ulcer of other part of right foot with fat layer exposed; L02.512 Cutaneous abscess of left hand; L81.9 Disorder of pigmentation, unspecified; R60.0 Localized edema; L85.3 Xerosis cutis; I10 Essential (primary) hypertension | CPT/HCPCS: 11042; 11045; A9270 ==

== ENCOUNTER → 2024-12-12 | Outpatient (CLI) | payer MEDICAID, SELFPAY ==
[2024-12-12 10:59] LABS: Glucose Estimated Average 352 mg/dL (80-131); Hemoglobin A1C 13.9 % Hgb (4.8-6.0)
== END | disposition home or self-care (01) ==
LOC: COPL 09:30
PROVIDERS: PCP Family Medicine; Referring Provider Student in an Organized Health Care Education/Training Program; Visit Provider Student in an Organized Health Care Education/Training Program
DX: E11.622 Type 2 diabetes mellitus with other skin ulcer (principal)
CPT/HCPCS: 36415; 83036

== ENCOUNTER → 2024-12-13 | Outpatient (CLI) | payer MEDICAID, SELFPAY | END | disposition home or self-care (01) | LOC: SWHD 13:31 | PROVIDERS: PCP Physician Assistant; Referring Provider Physician Assistant; Visit Provider Student in an Organized Health Care Education/Training Program | DX: L97.512 Non-pressure chronic ulcer of other part of right foot with fat layer exposed (principal); L02.512 Cutaneous abscess of left hand; L81.9 Disorder of pigmentation, unspecified; R60.0 Localized edema; L85.3 Xerosis cutis; I10 Essential (primary) hypertension | CPT/HCPCS: 97597 ==

== ENCOUNTER → 2024-12-18 | Outpatient (CLI) | payer MEDICAID, SELFPAY | END | disposition home or self-care (01) | LOC: SWHD 13:22 | PROVIDERS: PCP Physician Assistant; Referring Provider Physician Assistant; Visit Provider Student in an Organized Health Care Education/Training Program | DX: I87.311 Chronic venous hypertension (idiopathic) with ulcer of right lower extremity (principal); L97.512 Non-pressure chronic ulcer of other part of right foot with fat layer exposed; L02.512 Cutaneous abscess of left hand; L81.9 Disorder of pigmentation, unspecified; R60.0 Localized edema; L85.3 Xerosis cutis; I10 Essential (primary) hypertension | CPT/HCPCS: 17250; 11042; A9270 ==

== ENCOUNTER → 2024-12-25 | Outpatient (CLI) | payer MEDICAID, SELFPAY | END | disposition home or self-care (01) | PROVIDERS: PCP Physician Assistant; Referring Provider Physician Assistant; Visit Provider Student in an Organized Health Care Education/Training Program | DX: L97.512 Non-pressure chronic ulcer of other part of right foot with fat layer exposed (principal); L02.512 Cutaneous abscess of left hand; L81.9 Disorder of pigmentation, unspecified; R60.0 Localized edema; L85.3 Xerosis cutis; I10 Essential (primary) hypertension | CPT/HCPCS: 97597; A9270 ==

== ENCOUNTER → 2025-01-01 | Outpatient (CLI) | payer MEDICAID, SELFPAY | END | disposition home or self-care (01) | PROVIDERS: PCP Physician Assistant; Referring Provider Physician Assistant; Visit Provider Surgery | DX: I87.311 Chronic venous hypertension (idiopathic) with ulcer of right lower extremity (principal); L97.512 Non-pressure chronic ulcer of other part of right foot with fat layer exposed; L02.512 Cutaneous abscess of left hand; L81.9 Disorder of pigmentation, unspecified; R60.0 Localized edema; L85.3 Xerosis cutis; I10 Essential (primary) hypertension | CPT/HCPCS: 11042; A9270 ==

== ENCOUNTER → 2025-01-08 | Outpatient (CLI) | payer MEDICAID, SELFPAY | END | disposition home or self-care (01) | LOC: SWHD 11:27 | PROVIDERS: PCP Physician Assistant; Referring Provider Physician Assistant; Visit Provider Student in an Organized Health Care Education/Training Program | DX: I87.311 Chronic venous hypertension (idiopathic) with ulcer of right lower extremity (principal); L97.512 Non-pressure chronic ulcer of other part of right foot with fat layer exposed; L02.512 Cutaneous abscess of left hand; L81.9 Disorder of pigmentation, unspecified; R60.0 Localized edema; L85.3 Xerosis cutis; I10 Essential (primary) hypertension | CPT/HCPCS: 97597 ==

== ENCOUNTER → 2025-01-14 | Outpatient (CLI) | payer MEDICAID, SELFPAY ==
--- NOTE | 2025-01-14 10:08 | XR_ITS ---
Examination: Hand, left hand third digit Technique: Hand AP, oblique, lateral 3 views Date and time of exam: January 14, 2025 1040 hours Comparison November 29, 2024 INDICATIONS: Puncture injury with nonhealing wound third digit October 2025 FINDINGS: No fracture Suspicious for early cortical bone destruction involving the shaft of the distal phalanx third digit on the palmar side No opaque foreign body IMPRESSION: Suspicious for osteomyelitis distal phalanx third digit, consider MRI hand fourth and third digit follow-up
--- NOTE | 2025-01-14 10:08 | XR_ITS ---
Examination: Wrist, left 3 views Technique: Wrist AP, oblique, lateral 3 views Date and time of exam: January 14, 2025 at 1040 hours INDICATIONS: Left wrist pain beginning November 2024 FINDINGS: Moderate osteopenia Mild to moderate narrowing radiocarpal and first carpometacarpal joints No fracture No erosive arthritis Soft tissue vascular calcification IMPRESSION: Mild to moderate narrowing radiocarpal and first carpometacarpal joints
== END | disposition home or self-care (01) ==
LOC: CDIM 10:02
PROVIDERS: PCP Nurse Practitioner Gerontology; Referring Provider Nurse Practitioner Gerontology; Visit Provider Nurse Practitioner Gerontology
DX: M25.842 Other specified joint disorders, left hand (principal); M25.832 Other specified joint disorders, left wrist
CPT/HCPCS: 73110; 73130

== ENCOUNTER → 2025-01-15 | Outpatient (CLI) | payer MEDICAID, SELFPAY | END | disposition home or self-care (01) | LOC: SWHD 12:40 | PROVIDERS: PCP Physician Assistant; Referring Provider Physician Assistant; Visit Provider Student in an Organized Health Care Education/Training Program | DX: I87.311 Chronic venous hypertension (idiopathic) with ulcer of right lower extremity (principal); L97.512 Non-pressure chronic ulcer of other part of right foot with fat layer exposed; L02.512 Cutaneous abscess of left hand; L81.9 Disorder of pigmentation, unspecified; R60.0 Localized edema; L85.3 Xerosis cutis; I10 Essential (primary) hypertension | CPT/HCPCS: 11042; 97597; A9270 ==

== ENCOUNTER → 2025-01-22 | Outpatient (CLI) | payer MEDICAID, SELFPAY | END | disposition home or self-care (01) | LOC: SWHD 13:20 | PROVIDERS: PCP Physician Assistant; Referring Provider Physician Assistant; Visit Provider Student in an Organized Health Care Education/Training Program | DX: I87.311 Chronic venous hypertension (idiopathic) with ulcer of right lower extremity (principal); L97.512 Non-pressure chronic ulcer of other part of right foot with fat layer exposed; L02.512 Cutaneous abscess of left hand; L81.9 Disorder of pigmentation, unspecified; R60.0 Localized edema; L85.3 Xerosis cutis; I10 Essential (primary) hypertension | CPT/HCPCS: 97597; A9270 ==

== ENCOUNTER → 2025-01-29 | Outpatient (CLI) | payer MEDICAID, SELFPAY | END | disposition home or self-care (01) | LOC: SWHD 12:58 | PROVIDERS: PCP Physician Assistant; Referring Provider Physician Assistant; Visit Provider Student in an Organized Health Care Education/Training Program | DX: I87.311 Chronic venous hypertension (idiopathic) with ulcer of right lower extremity (principal); L97.512 Non-pressure chronic ulcer of other part of right foot with fat layer exposed; L02.512 Cutaneous abscess of left hand; L81.9 Disorder of pigmentation, unspecified; R60.0 Localized edema; L85.3 Xerosis cutis; I10 Essential (primary) hypertension | CPT/HCPCS: 29580 ==

== ENCOUNTER → 2025-02-07 | Outpatient (CLI) | payer MEDICAID, SELFPAY | END | disposition home or self-care (01) | LOC: SWHD 11:37 | PROVIDERS: PCP Physician Assistant; Referring Provider Physician Assistant; Visit Provider Student in an Organized Health Care Education/Training Program | DX: I87.311 Chronic venous hypertension (idiopathic) with ulcer of right lower extremity (principal); L97.512 Non-pressure chronic ulcer of other part of right foot with fat layer exposed; L02.512 Cutaneous abscess of left hand; L81.9 Disorder of pigmentation, unspecified; R60.0 Localized edema; L85.3 Xerosis cutis; I10 Essential (primary) hypertension | CPT/HCPCS: 11042; A9270 ==

== ENCOUNTER → 2025-02-14 | Outpatient (CLI) | payer MEDICAID, SELFPAY | END | disposition home or self-care (01) | LOC: SWHD 12:35 | PROVIDERS: PCP Physician Assistant; Referring Provider Physician Assistant; Visit Provider Surgery | DX: I87.311 Chronic venous hypertension (idiopathic) with ulcer of right lower extremity (principal); L97.512 Non-pressure chronic ulcer of other part of right foot with fat layer exposed; S61.432A Puncture wound without foreign body of left hand, initial encounter; X58.XXXA Exposure to other specified factors, initial encounter; L81.9 Disorder of pigmentation, unspecified; R60.0 Localized edema; L85.3 Xerosis cutis; I10 Essential (primary) hypertension | CPT/HCPCS: 11042; A9270 ==

== ENCOUNTER → 2025-02-21 | Outpatient (CLI) | payer MEDICAID, SELFPAY | END | disposition home or self-care (01) | LOC: SWHD 11:03 | PROVIDERS: PCP Physician Assistant; Referring Provider Physician Assistant; Visit Provider Surgery | DX: I87.311 Chronic venous hypertension (idiopathic) with ulcer of right lower extremity (principal); L97.512 Non-pressure chronic ulcer of other part of right foot with fat layer exposed; S61.432A Puncture wound without foreign body of left hand, initial encounter; X58.XXXA Exposure to other specified factors, initial encounter; L81.9 Disorder of pigmentation, unspecified; L85.3 Xerosis cutis; I10 Essential (primary) hypertension | CPT/HCPCS: 11042; A9270 ==

== ENCOUNTER → 2025-02-27 | Outpatient (CLI) | payer MEDICAID, SELFPAY | END | disposition home or self-care (01) | LOC: SWHD 10:48 | PROVIDERS: PCP Physician Assistant; Referring Provider Physician Assistant; Visit Provider Student in an Organized Health Care Education/Training Program | DX: I87.311 Chronic venous hypertension (idiopathic) with ulcer of right lower extremity (principal); L97.512 Non-pressure chronic ulcer of other part of right foot with fat layer exposed; S61.432A Puncture wound without foreign body of left hand, initial encounter; X58.XXXA Exposure to other specified factors, initial encounter; L81.9 Disorder of pigmentation, unspecified; L85.3 Xerosis cutis; I10 Essential (primary) hypertension | CPT/HCPCS: 11042; 11045; A9270 ==

== ENCOUNTER → 2025-03-04 | Outpatient (CLI) | payer MEDICAID, SELFPAY | END | disposition home or self-care (01) | LOC: SWHD 12:45 | PROVIDERS: PCP Physician Assistant; Referring Provider Physician Assistant; Visit Provider Student in an Organized Health Care Education/Training Program | DX: I87.311 Chronic venous hypertension (idiopathic) with ulcer of right lower extremity (principal); L97.512 Non-pressure chronic ulcer of other part of right foot with fat layer exposed; S61.432A Puncture wound without foreign body of left hand, initial encounter; X58.XXXA Exposure to other specified factors, initial encounter; L81.9 Disorder of pigmentation, unspecified; L85.3 Xerosis cutis; I10 Essential (primary) hypertension | CPT/HCPCS: 97597; 97598; 11042; A9270 ==

== ENCOUNTER → 2025-03-05 | Outpatient (CLI) | payer MEDICAID, SELFPAY ==
[2025-03-05 10:39] LABS: Glucose Estimated Average 298 mg/dL (80-131)
[2025-03-05 10:59] LABS: Alanine Aminotransferase < 7 U/L (10-49); Albumin, Serum 3.8 gm/dL (3.5-5.0); Albumin/Globulin Ratio 1.3 (1.2-2.2); Alkaline Phosphatase 94 U/L (46-116); Anion Gap 7 (7-16); Aspartate Amino Transferase 14 U/L (0-34); BUN/Creatinine Ratio 22 Ratio (12-20); Bilirubin,Total 0.3 mg/dL (0.3-1.2); Blood Urea Nitrogen 22 mg/dL (9-23); Calcium (Corrected) 9.2 mg/dL (8.5-10.1); Carbon Dioxide 27.9 mMol/L (20.0-31.0); Chloride 106 mMol/L (98-107); Glucose 151 mg/dL (74-106); Osmolality,Calculated 287 (275-295); Potassium 4.4 mMol/L (3.4-5.1); Sodium 141 mMol/L (136-145); Thyroid Stimulating Hormone 11.24 uIU/mL (0.55-4.78); Total Protein 6.8 gm/dL (5.7-8.2); eGFR > 60 See Note
== END | disposition home or self-care (01) ==
LOC: COPL 09:45
PROVIDERS: PCP Family Medicine; Referring Provider Student in an Organized Health Care Education/Training Program; Visit Provider Student in an Organized Health Care Education/Training Program
DX: E11.622 Type 2 diabetes mellitus with other skin ulcer (principal)
CPT/HCPCS: 36415; 80053; 83036; 84443

== ENCOUNTER → 2025-03-10 | Outpatient (CLI) | payer MEDICAID, SELFPAY | END | disposition home or self-care (01) | LOC: SWHD 10:52 | PROVIDERS: PCP Physician Assistant; Referring Provider Physician Assistant; Visit Provider Surgery | DX: I87.311 Chronic venous hypertension (idiopathic) with ulcer of right lower extremity (principal); L97.512 Non-pressure chronic ulcer of other part of right foot with fat layer exposed; S61.432A Puncture wound without foreign body of left hand, initial encounter; X58.XXXA Exposure to other specified factors, initial encounter; L81.9 Disorder of pigmentation, unspecified; L85.3 Xerosis cutis; I10 Essential (primary) hypertension | CPT/HCPCS: 11042; 11045; A9270 ==

== ENCOUNTER → 2025-03-17 | Outpatient (CLI) | payer MEDICAID, SELFPAY | END | disposition home or self-care (01) | LOC: SWHD 10:47 | PROVIDERS: PCP Physician Assistant; Referring Provider Physician Assistant; Visit Provider Surgery | DX: I87.311 Chronic venous hypertension (idiopathic) with ulcer of right lower extremity (principal); L97.512 Non-pressure chronic ulcer of other part of right foot with fat layer exposed; S61.432A Puncture wound without foreign body of left hand, initial encounter; X58.XXXA Exposure to other specified factors, initial encounter; L81.9 Disorder of pigmentation, unspecified; L85.3 Xerosis cutis; I10 Essential (primary) hypertension | CPT/HCPCS: 11042; 11045; A9270 ==

== ENCOUNTER 2025-07-19 11:31 | Emergency (ER) | payer MEDICAID, SELFPAY ==
[2025-07-19 12:25] VITALS: BP 94/62; PULSE 75; RESP 19; TEMP 36.8; O2SAT 100; BMI 22.4
--- NOTE | 2025-07-19 12:38 | PD.EDBACK ---
ED Back Injury Pain RME/HPI General Chief Complaint: Back Pain/Injury Stated Complaint: GENERALIZED BACK PAIN X 2 WEEKS Time Seen by Provider: 07/19/25 12:38 Arrival date/time: 07/19/25 11:31 Limitations: no limitations RME / HPI RME / HPI Narrative: patient works in the [employer] and p/w generalized back achiness. has not taken any meds prior to arrival. denies f,c,n, v, recent travel or sick contacts. denies hx of IVDU. no weakness in upper nor lower extremities. no saddle anesthesia, no ruinary or bowel incontinence. no difficulty with ambulation. no belly pain, no hx of smoking. Related Data Previous Rx's ?Medication ?Instructions ?Recorded ascorbic acid (vitamin C) 250 mg 500 mg (2 x 250 mg) PO BID #60 tabs 12/26/23 tablet (Vitamin C) multivitamin with folic acid 400 1 tab PO QDAY #30 tabs 12/26/23 mcg tablet (Tab-A-Ita) bisacodyl 10 mg rectal suppository 10 mg WA Q72H PRN Constipation #12 12/29/23 (Dulcolax (bisacodyl)) ea blood-glucose meter (Blood Glucose #1 ea 12/29/23 Monitoring kit) dronabinol 5 mg capsule 5 mg PO BID #30 caps 12/29/23 glucagon HCl 1 mg solution for 1 mg subcut Q20M PRN Hypoglycemia 12/29/23 injection (Glucagon (HCl) #1 ea Emergency Kit) hydrocodone 7.5 mg-acetaminophen 1 tab PO Q8H PRN Pain (Scale Score 12/29/23 325 mg tablet 7-10) #10 tabs insulin lispro 100 unit/mL 1 sliding scale dose subcut 12/29/23 subcutaneous pen (Admelog SoloStar USEASDIRECTD #15 mL U-100 Insulin lispro) metformin 1,000 mg tablet 1,000 mg PO BIDWMEAL #90 tabs 12/29/23 ondansetron HCl 4 mg tablet 4 mg PO Q6H PRN Nausea #30 tabs 12/29/23 pantoprazole 40 mg tablet,delayed 40 mg PO QDAY #60 tabs 12/29/23 release pen needle, diabetic 31 gauge x #1,200 ea 12/29/2304/11 sitagliptin phosphate 50 mg tablet 50 mg PO QDAY 1 month #30 tabs 12/29/23 (Januvia) insulin glargine 100 unit/mL (3 10 unit (0.1 mL) subcut QPM #15 mL 03/01/24 mL) subcutaneous pen (Basaglar KwikPen U-100 Insulin) midodrine 10 mg tablet 10 mg PO TID PRN hypotension #90 03/04/24 tabs Allergies Allergy/AdvReac Type Severity Reaction Status Date / Time milk AdvReac Mild Diarrhea Verified 07/19/25 11:32 ED Exam General Limitations: Present no limitations General appearance: Present alert and in no apparent distress Head Head exam: Present atraumatic and normocephalic Eye Eye exam: Present normal appearance, PERRL and EOMI ENT ENT exam: Present normal exam, normal oropharynx and mucous membranes moist Neck Neck exam: Present normal inspection, full ROM and trachea midline; Absent tenderness Chest Chest inspection: Present normal inspection and symmetric chest wall rise Respiratory Respiratory exam: Present normal lung sounds bilaterally and respiratory distress Cardiovascular Cardiovascular exam: Present regular rate and normal rhythm Abdominal Exam Abdominal exam: Present soft; Absent distention, tenderness, guarding or rebound Rectal Exam Rectal exam: Present deferred Extremities Exam Extremities exam: Present normal inspection, full ROM and normal capillary refill; Absent tenderness, pedal edema or joint swelling Back Exam Back exam: Present normal inspection, full ROM and paraspinal tenderness; Absent tenderness, CVA tenderness (R), CVA tenderness (L), vertebral tenderness or rashes Neurological Exam Neurological exam: Present alert, oriented X3, CN II-XII intact, normal gait and motor sensory deficit Psychiatric Psychiatric exam: Present normal affect and normal mood Course Quality Measures none Orders Category Date Time Status Ketorolac Inj [Toradol Inj] Med 07/19/25 12:36 Discontinued 15 mg IM X1 ONE Vital Signs Vital signs: Vital Signs Temperature 98.3 F 07/19/25 12:25 Pulse Rate 75 07/19/25 12:25 Respiratory Rate 19 07/19/25 12:25 Blood Pressure 94/62 07/19/25 12:25 Pulse Oximetry (%) 100 07/19/25 12:25 Oxygen Delivery Method Room Air 07/19/25 12:25 Back Pain / Injury MDM Narrative MDM Narrative:: patient w/diffuse abdominal pain. no red flags for bakc or belly pain. no cp or palpitaions. no FNDs. had joint decision making conversation with patient, given symptoms chronic and unchanging will move forward with meds for symptom relief, recommendation that he follows up with pcp and PT. Patient data External records reviewed:: [facility] previous records Clinical information provided by:: patient Social determinants that could affect healthcare access:: none Patient has the following chronic illnesses:: none How is presenting disease/condition affected by chronic disease/condition?: no chronic disease Evaluation data The following diagnostics were reviewed and interpreted by me:: other (specify) Lab and/or radiology exams considered but not ordered:: nonen Interpretation Summary: see above Medications / Prescriptions Medications or Prescriptions considered but not ordered:: none Medication administrations:: Medication Administration History Discontinued Medications Ketorolac Tromethamine (Ketorolac Inj 60 Mg/2 Ml Vial) 15 mg IM X1 ONE Stop: 07/19/25 12:37 Last Admin: 07/19/25 13:05 Dose: 15 mg Documented By: see above Consultations Consultation(s) initiated? (list below): No Diagnosis Most likely diagnosis given after review of the tests above:: back pain Admission Indicated Admission indicated?: not indicated Admission Request Was there a request for admission?: No Disposition Plan Disposition Plan: Discharge Discharge Attestation Discharge Attestation: The patient and all family members were given an opportunity to ask questions and understood the discharge instructions. Discharge instructions specifically effects, indications for sooner follow up or return to the emergency department, and the expected course of current diagnosis. Patient condition: Stable Discharge Plan Plan Patient Disposition: HOME (Self Care) Patient condition on transfer: Stable Prescriptions/Referrals Prescriptions/Med Rec: No Action ascorbic acid (vitamin C) [Vitamin C] 250 mg Tablet 500 mg PO BID Qty: 60 0RF multivitamin with folic acid [Tab-A-Ita] 400 mcg Tablet 1 tab PO QDAY Qty: 30 0RF pantoprazole 40 mg tablet,delayed release (DR/EC) 40 mg PO QDAY Qty: 60 1RF dronabinol 5 mg Capsule 5 mg PO BID Qty: 30 1RF Rx Instructions: administer before lunch and evening meal/dinner ondansetron HCl 4 mg Tablet 4 mg PO Q6H PRN (Reason: Nausea) Qty: 30 0RF (DME) blood-glucose meter [Blood Glucose Monitoring] Kit See Rx Instructions .Route Qty: 1 0RF Rx Instructions: As directed hydrocodone-acetaminophen 7.5-325 mg Tablet 1 tab PO Q8H MDD 3 tabs each day PRN (Reason: Pain (Scale Score 7-10)) Qty: 10 0RF bisacodyl [Dulcolax (bisacodyl)] 10 mg Suppository 10 mg WA Q72H PRN (Reason: Constipation) Qty: 12 0RF metformin 1,000 mg tablet 1,000 mg PO BIDWMEAL Qty: 90 0RF insulin lispro [Admelog SoloStar U-100 Insulin] 100 unit/mL insulin pen 1 sliding scale dose subcut USEASDIRECTD Qty: 15 2RF Rx Instructions: 131-180 - 1 unit 181-240 - 2 units 241-300 - 3 units 301-350 - 4 units >400 - 8 units (DME) pen needle, diabetic 31 gauge x 5/16 needle See Rx Instructions .Route Qty: 1200 0RF Rx Instructions: As directed Januvia 50 mg tablet 50 mg PO QDAY 30 Days Qty: 30 1RF glucagon HCl [Glucagon (HCl) Emergency Kit] 1 mg Recon Soln 1 mg SUBCUT Q20M PRN (Reason: Hypoglycemia) Qty: 1 2RF Rx Instructions: until target blood sugar attained insulin glargine [Basaglar KwikPen U-100 Insulin] 100 unit/mL (3 mL) insulin pen 10 unit subcut QPM Qty: 15 0RF midodrine 10 mg tablet 10 mg PO TID PRN (Reason: hypotension) Qty: 90 0RF Rx Instructions: do not give last dose after 6PM or within 4 hrs of bedtime. Hold for SBP >120 Problem List Clinical Impression: Back pain Patient/Caregiver Discharge Instructions Education Materials: Anatomy of a Normal Spine, ED Back Care Tips Additional Instructions: Por favor hacer ejercisios de estiramiento de robert musculos antes y despues de trabajar. Regresar inmediatamente si tiene nuevos sintomas o sintomas de preocupacion. Print Language: [place] Stand Alone Forms: Aruna Award Info., Patient Portal Info Letter
[2025-07-19] MEDS: KETOROLAC INJ 60 MG/2 ML VIAL 15 MG IM (13:05)
== END 2025-07-19 15:51 | disposition home or self-care (01) ==
LOC: SERX 14:49
PROVIDERS: Emergency Provider Emergency Medicine
DX: M54.9 Dorsalgia, unspecified (principal)
CPT/HCPCS: 96372; 99282; J1885